=== PATIENT | male | born 1975 | race Caucasian/White ===

== ENCOUNTER 2016-12-11 10:16 | Emergency (ER) | payer BC ==
[~2016-12-11] VITALS: Wt 70.0 kg
[2016-12-11] MEDS ORDERED: ONDANSETRON (ODT) 4 MG TAB ODT STA (12:59)
[2016-12-11] MEDS ORDERED: ACET500C5 PO (13:28)
[2016-12-11] MEDS ORDERED: ONDA4TAB14 PO (13:28)
--- NOTE | 2016-12-11 13:35 | ERD ---
ER Documentation Chief Complaint Date/Time DATE: 12/11/16 TIME: 13:30 Chief Complaint ABD PAIN AND NAUSEA AND VOMITING AFTER EATING HAMBURGER LAST NIGHT HPI 41-year-old male complaining of nausea and vomiting 1 hour after eating a hamburger from [email or web address] last night. Patient stated that he vomited 3 times today, on the vomitus is nonbloody and nonbilious. He is able to drink fluids, but feel very nauseous. Denies fever. Denies abdominal pain. Denies diarrhea. Patient also complaining of left shoulder pain "for a long time". Stating that he cannot sleep at night because of pain. He wants pain medications. ROS All systems reviewed and are negative except as per history of present illness. Medications Home Meds Active Scripts Acetaminophen* (Tylophen*) 500 Mg Capsule, 1 CAP PO Q6H Y for PAIN AND OR ELEVATED TEMP, #20 CAP Prov:KATHE CHRISTINE. [employer] 12/11/16 Ondansetron (Ondansetron Odt) 4 Mg Tab.rapdis, 4 MG PO Q6H Y for NAUSEA AND/OR VOMITING, #10 TAB Prov:KATHE CHRISTINE. [employer] 12/11/16 Allergies Allergies: Coded Allergies: No Known Allergy (Unverified , 02/01/14) PMhx/Soc Medical and Surgical Hx: pt denies Surgical Hx Hx Miscellaneous Medical Probl: Yes (chronic back problems; shoulder) Hx Alcohol Use: No Hx Substance Use: Yes (amphetamines) Hx Tobacco Use: Yes (5 cigs /day) Smoking Status: Current every day smoker Physical Exam Vitals Vital Signs Date Time Temp Pulse Resp B/P Pulse Ox O2 Delivery O2 Flow Rate FiO2 12/11/16 10:17 97.8 100 21 132/85 98 Physical Exam General: Well-developed, well-nourished, conscious and coherent, in no distress Skin: Warm and dry without rash, good texture and turgor Head: Normocephalic without evidence of trauma Eyes: Sclera and conjunctivae normal; pupils equal, round, and reactive to light; extraocular movements are intact Neck: Supple without meningismus or adenopathy. Carotids are equal. Trachea midline. No bruits or JVD Chest: Normal AP diameter. Good expansion without retractions. Nontender. Lungs are clear to auscultate bilaterally with good tidal volume Heart: Regular rate and rhythm. No murmur, rub, or gallops heard Abdomen: Soft and nontender without masses, guarding, or rebound. Bowel sounds are active. No hepatosplenomegaly Back: Without spinal or CVA tenderness Neuro: Alert and oriented 4, GCS 15. Cranial nerves II-XII intact. Motor and sensory exams nonfocal. Moves all extremities. Speech clear. Gait normal Results 24 hrs Current Medications Medications (Trade) Dose Ordered Sig/Patricia Route PRN Reason Start Time Stop Time Status Last Admin Dose Admin Ondansetron HCl (Zofran Odt) 4 mg ONCE STAT ODT 12/11/16 12:59 12/11/16 13:00 DC 12/11/16 13:05 Procedures/MDM 41-year-old male presented ED was symptoms consistent with foodborne gastroenteritis. Zofran ODT given to the patient in the ED. After Zofran, patient able to tolerate p.o. fluid intake without further vomiting. I doubt acute appendicitis, cholecystitis or other acute abdomen. Patient does not have any active vomiting, is able to maintain by mouth fluid intake. Patient also complains pain in his left shoulder, wanting pain medication. I informed patient that since he be having this pain for some time, is is consider chronic pain, he will need to follow-up with a PCP from evaluation and management. Tylenol will be prescribed for the patient for pain. Patient appears well, stable for discharge and outpatient management. Medical decision making shared with patient and family. Education provided to patient and family. Patient and family expressed understanding of the plan. Medications on discharge: Tylenol, Zofran. Follow-up: Primary care provider in 2-3 days or return to ED if worse. Departure Diagnosis: Primary Impression: Vomiting Vomiting type: unspecified Vomiting Intractability: non-intractable Nausea presence: with nausea Qualified Code: R11.2 - Non-intractable vomiting with nausea, unspecified vomiting type Condition: Good Patient Instructions: Food Poisoning (6Yr-Adult) Referrals: COMM[facility]ITY CLINICS YOU HAVE RECEIVED A MEDICAL SCREENING EXAM AND THE RESULTS INDICATE THAT YOU DO NOT HAVE A CONDITION THAT REQUIRES URGENT TREATMENT IN THE EMERGENCY DEPARTMENT. FURTHER EVALUATION AND TREATMENT OF YOUR CONDITION CAN WAIT UNTIL YOU ARE SEEN IN YOUR DOCTORS OFFICE WITHIN THE NEXT 1-2 DAYS. IT IS YOUR RESPONSIBILITY TO MAKE AN APPOINTMENT FOR FOLOW-UP CARE. IF YOU HAVE A PRIMARY DOCTOR --you should call your primary doctor and schedule an appointment IF YOU DO NOT HAVE A PRIMARY DOCTOR YOU CAN CALL OUR PHYSICIAN REFERRAL HOTLINE AT IF YOU CAN NOT AFFORD TO SEE A PHYSICIAN YOU CAN CHOSE FROM THE FOLLOWING [facility]MERLY [facility] [address] [facility] [address] [facility] [facility] [address] [facility] [address] [facility] [address] [facility] [facility]. [address] Additional Instructions: Call your primary care doctor TOMORROW for an appointment during the next 2-3 days.See the doctor sooner or return here if your condition worsens before your appointment time. KATHE CHRISTINE NP December 11, 2016 13:35
[2016-12-11 13:42] VITALS: BP 126/78; PULSE 76; RESP 21; TEMP 98.2
== END 2016-12-11 13:42 | disposition home or self-care (01) ==
LOC: FTE 10:16
DX: R11.2 Nausea with vomiting, unspecified (principal); F17.210 Nicotine dependence, cigarettes, uncomplicated
CPT/HCPCS: 99283; Z7610